=== PATIENT | female | born 1980 | race Caucasian/White ===

== ENCOUNTER 2018-09-20 01:10 | Outpatient (CLI) | payer BC, SELFPAY ==
[2018-09-20 07:43] LABS: HCT 44.5 % (36.0-46.0); HGB 15.3 g/dL (12.0-15.5); Mean Corp. HGB Concentration 34.4 g/dL (32.0-36.0); Mean Corpuscular Hemoglobin 34.4 pg (27.0-33.0); Mean Platelet Volume 9.7 fL (8.0-11.0); Platelet Count 281 x1000/uL (130-400); RBC 4.45 m/cumm (4.00-5.20); RBC Distribution Width 12.2 % (11.7-14.6); White Blood Cell Count 5.47 k/cumm (4.4-10.8)
[2018-09-20 07:53] LABS: PTT Activated 23.9 sec (21.0-31.4)
[2018-09-20 08:49] LABS: Anion Gap 9.2 mmol/L (3-11); BUN 12 mg/dL (7-18); CO2 27.8 mmol/L (21.0-32.0); Chloride 103 mmol/L (98-107); Glucose 92 mg/dL (70-100); Potassium 4.2 mmol/L (3.5-5.1); Sodium 140 mmol/L (136-145)
== END 2018-09-20 01:30 ==
PROVIDERS: PCP Nurse Practitioner Gerontology
DX: N64.82 Hypoplasia of breast (principal)
CPT/HCPCS: 36415; 80051; 82947; 84520; 85027; 82565; 85610; 85730

== ENCOUNTER 2020-07-07 10:18 | Outpatient (REF) | payer BC, SELFPAY ==
--- NOTE | 2020-07-07 09:15 | PAPFT_PTH ---
PATIENT: LARISA GALLEGOS LOC: [facility] U#:[id number] AGE/SX: 39/F ROOM: RE07/07/[address]: Loreto Dewitt NP : 1980 BED: DIS: 07/07/2020 SPEC #: [id number] RECD: 07/07/20 12:47 STATUS: LEAH REJose #: [id number] MARYJANE: 07/07/20 09:[address]: Loreto Dewitt NP DEPT: [facility] Cytology RECD BY: Bisi Marshall ENTERED: 07/07/20 12:48 SP TYPE: PAPFT OTHR DR: Rogelio Becerril MD Tissues: 1 - CX/ENDOCX FOR PAP SMEARS Procedures: PAP THIN PREP/[facility] Screening HPV DNA PROBE Comments: [id number] (CHLAMYDIA/GC)
[2020-07-08 11:53] LABS: Chlamydia Result Negative (Negative); GC Result Negative (Negative)
== END 2020-07-07 10:38 ==
LOC: LBN 10:18
PROVIDERS: PCP Family Medicine; Visit Provider Nurse Practitioner Women's Health
DX: Z11.3 Encounter for screening for infections with a predominantly sexual mode of transmission (principal); Z12.4 Encounter for screening for malignant neoplasm of cervix; Z11.51 Encounter for screening for human papillomavirus (HPV)
CPT/HCPCS: 87491; 87591; 88142; 87624

== ENCOUNTER 2020-07-28 00:36 | Outpatient (CLI) | payer BC, SELFPAY ==
--- NOTE | 2020-07-28 07:15 | DI.US_ITS ---
EXAM: US PELVIS TRANSVAGINAL CLINICAL HISTORY: ABNL UTERINE BLEEDING,IUD in place,N93.9,Z30.431 TECHNIQUE: Ultrasound performed using standard protocol. COMPARISON: No exams were available for comparison FINDINGS: Pelvic ultrasound was performed transabdominally and transvaginally. There is a is an IUD in normally positioned in the endometrial cavity. Endometrial stripe is unremar kable as visualized and measures about 3 millimeters in thickness. Note is made of multiple nabothian cysts. Myometrium is unremarkable in appearance. Left ovary has a normal follicular appearance. There is a 23 millimeter in diameter pole cyst of the right ovary presumably representing a small fun ctional cyst. No other ovarian abnormality seen. No free fluid in the cul-de-sac. Limited scanning of the kidneys is unremarkable. IMPRESSION: IUD appropriately positioned in the endometrial cavity with a normal-appearing endometrial stripe. Presumed small functional right ovarian cyst, 23 millimeters diameter. DATA REPOSITORY:
== END 2020-07-28 00:56 ==
PROVIDERS: PCP Family Medicine; Visit Provider Nurse Practitioner Women's Health
DX: N93.8 Other specified abnormal uterine and vaginal bleeding (principal); Z97.5 Presence of (intrauterine) contraceptive device
CPT/HCPCS: 76830; 76856

== ENCOUNTER 2020-08-12 02:37 | Outpatient (CLI) | payer BC, SELFPAY ==
--- NOTE | 2020-08-12 08:15 | DI.MAMMO_ITS ---
EXAM: MG MAMMO SCREENING 60 MIN DUR CLINICAL HISTORY: breast cancer screening,H/O BREAST AUGMENTATION,IMPLANTS,Z98.82,Z12.39. TECHNIQUE: Bilateral full field digital CC and MLO mammographic images with and without implant disp lacement were obtained with 3D tomosynthesis and utilizing computer aided detection (CAD). COMPARISON: Baseline examination FINDINGS: Masses/Architectural Distortion: None seen. Microcalcifications: No suspicious pleomorphic-type microcalcifications are seen. Skin thickening/Nipple Retraction: None. Implants: There are lateral subpectoral implants. The implant capsules appear intact. Impression: 1. No significant interval change with no specific features of malignancy noted. 2. Unless there is more urgent need, screening mammography is recommended, as per [employer] guidelines. BI-RADS Category 1 - Negative Breast Density - Category C - Heterogeneously dense A negative radiographic report should not delay biopsy if a dominant or clinically suspicious mass is present. Up to ten percent of cancers are not identified on mammography. A negative report may reinforce clinical impression. Adenosis and dense breasts may obscure an underlying neoplasm. False positive reports average 6 to 10%. Patient will receive a letter notifying them of these results.
== END 2020-08-12 02:57 ==
PROVIDERS: PCP Family Medicine; Visit Provider Nurse Practitioner Women's Health
DX: Z12.31 Encounter for screening mammogram for malignant neoplasm of breast (principal); Z98.82 Breast implant status
CPT/HCPCS: 77063; 77067

== ENCOUNTER 2020-10-09 04:50 | Outpatient (CLI) | payer BC, SELFPAY ==
[2020-10-11 06:55] LABS: Patient Race White; SARS-CoV-2 RNA Undetected (Undetected); SARS-CoV-2 Specimen Source Nasal
== END 2020-10-09 05:10 ==
PROVIDERS: PCP Family Medicine; Visit Provider Family Medicine
DX: Z11.59 Encounter for screening for other viral diseases (principal); Z20.828 Contact with and (suspected) exposure to other viral communicable diseases
CPT/HCPCS: U0003